=== PATIENT | female | born 1940 | race Two or more races ===

== ENCOUNTER 2017-03-23 11:51 | Inpatient (IN) | payer MEDICARE ==
[~2017-03-23] VITALS: Ht 157.5 cm; Wt 61.0 kg
[2017-03-23] VITALS (7 sets, daily range): BP systolic 95–111; BP diastolic 66–77
[2017-03-23] MEDS ORDERED: DIGO125T PO (12:17)
[2017-03-23] MEDS ORDERED: METO-99 PO (12:17)
[2017-03-23] MEDS ORDERED: OMEP-110 PO (12:17)
[2017-03-23] MEDS ORDERED: POTA10TA31 PO (12:17)
[2017-03-23] MEDS ORDERED: FURO20TA3 PO (12:17)
[2017-03-23] MEDS ORDERED: WARF2.5T73 PO (12:17)
[2017-03-23] MEDS ORDERED: SODIUM CHLORIDE FLUSH 10ML SYR IVF ONE (12:30)
[2017-03-23 12:59] LABS: ASPARTATE AMINO TRANSFERASE 28 U/L (15-37); BLOOD UREA NITROGEN 17 mg/dL (7-18)
[2017-03-23 13:00] LABS: IS PT STATUS REG ER OR PRE ER? YES
[2017-03-23] MEDS ORDERED: DILTIAZEM 5 MG/ML, 5ML IVPush ONE ×3 (13:30→17:30)
[2017-03-23] MEDS ORDERED: DILTIAZEM 5 MG/ML, 5ML ONE ×2 (14:08→16:38)
[2017-03-23] MEDS ORDERED: DOCUSATE 100 MG CAPSULE PO PRN (16:00)
[2017-03-23] MEDS ORDERED: BISACODYL 10 MG SUPP PR PRN (16:00)
[2017-03-23] MEDS ORDERED: ONDANSETRON 2MG/ML, 2ML IVP PRN (16:00)
[2017-03-23] MEDS ORDERED: POLYETHYLENE GLYCOL 17 GM PACKET PO PRN (16:00)
[2017-03-23] MEDS ORDERED: ACETAMINOPHEN 325 MG TABLET PO PRN (16:00)
[2017-03-23 16:11] LABS: TOTAL IRON BINDING CAPACITY 476 mcg/dL (250-450)
[2017-03-23] MEDS ORDERED: DILTIAZEM 125 MG in SODIUM CHLORIDE 0.9% 100 ML IV PRN (17:50)
[2017-03-23] MEDS ORDERED: FUROSEMIDE 20 MG/2 ML IVPush ONE (18:00)
[2017-03-23 19:10] LABS: IS PT STATUS REG ER OR PRE ER? NO
[2017-03-23 19:32] LABS: PATH.CAST-FLAG NOT PRESENT; SPERM-FLAG NOT PRESENT; SRC-FLAG NOT PRESENT; XTAL-FLAG NOT PRESENT; YLC-FLAG NOT PRESENT
[2017-03-23] MEDS: SODIUM CHLORIDE FLUSH 10ML SYR IVF SCH (21:00)
[2017-03-23] MEDS ORDERED: METO-95 PO (21:29)
[2017-03-23] MEDS ORDERED: PNEUMOCOCCAL 23 VACCINE IM-VACC ONE (21:30)
[2017-03-24 01:16] VITALS: BP 106/71
[2017-03-24 01:18] VITALS: BP 106/71
[2017-03-24] MEDS: CEFTRIAXONE PMX 1GM/50ML 50 ML IV SCH (01:45)
[2017-03-24 07:19] LABS: IS PT STATUS REG ER OR PRE ER? NO
[2017-03-24 07:25] LABS: ASPARTATE AMINO TRANSFERASE 22 U/L (15-37); BLOOD UREA NITROGEN 17 mg/dL (7-18)
[2017-03-24 08:16] VITALS: BP 120/75
[2017-03-24] MEDS: OMEPRAZOLE 20 MG CAPSULE.DR PO SCH (08:46)
[2017-03-24] MEDS: METOPROLOL TARTRATE 100 MG TABLET PO SCH (08:46)
[2017-03-24] MEDS: POTASSIUM CHLORIDE 10 MEQ TABLET.ER PO SCH (08:47)
[2017-03-24] MEDS: SODIUM CHLORIDE FLUSH 10ML SYR IVF SCH ×2 (08:47→20:09)
[2017-03-24] MEDS: IRON SUCROSE COMPLEX 100MG/5ML IV SCH (08:47)
[2017-03-24] MEDS ORDERED: DIGOXIN 0.125 MG TABLET PO SCH (09:00)
[2017-03-24] MEDS ORDERED: FUROSEMIDE 20 MG TABLET PO SCH (09:00)
[2017-03-24] MEDS: DILTIAZEM 30 MG TABLET PO SCH ×3 (13:02→20:08)
[2017-03-24 13:51] LABS: OCCBLD OBC PASS
[2017-03-24] MEDS: AMOXICILLIN 500 MG CAPSULE PO SCH ×2 (16:54→20:07)
[2017-03-24 17:01] VITALS: BP 95/60
[2017-03-24] MEDS ORDERED: WARFARIN 2.5 MG TABLET PO-COUM SCH (18:00)
[2017-03-24 19:43] VITALS: BP 109/64
[2017-03-24] MEDS: CLARITHROMYCIN 500 MG TABLET PO SCH (20:08)
[2017-03-24] MEDS ORDERED: SUCRALFATE 1 GM TABLET PO SCH (21:00)
[2017-03-25 00:33] VITALS: BP 87/46
[2017-03-25] MEDS: CEFTRIAXONE PMX 1GM/50ML 50 ML IV SCH (02:20)
[2017-03-25 03:24] LABS: BLOOD UREA NITROGEN 31 mg/dL (7-18)
[2017-03-25 05:50] VITALS: BP 118/69
[2017-03-25] MEDS: DILTIAZEM 30 MG TABLET PO SCH (05:53)
[2017-03-25 06:37] VITALS: BP 93/52
[2017-03-25] MEDS ORDERED: FUROSEMIDE 20 MG TABLET PO SCH (09:00)
[2017-03-25] MEDS: IRON SUCROSE COMPLEX 100MG/5ML IV SCH (09:40)
[2017-03-25] MEDS: METOPROLOL TARTRATE 100 MG TABLET PO SCH (09:41)
[2017-03-25] MEDS: OMEPRAZOLE 20 MG CAPSULE.DR PO SCH (09:41)
[2017-03-25] MEDS: SODIUM CHLORIDE FLUSH 10ML SYR IVF SCH (09:41)
[2017-03-25] MEDS: POTASSIUM CHLORIDE 10 MEQ TABLET.ER PO SCH (09:42)
[2017-03-25] MEDS: AMOXICILLIN 500 MG CAPSULE PO SCH (09:43)
[2017-03-25] MEDS: CLARITHROMYCIN 500 MG TABLET PO SCH (09:43)
[2017-03-25] MEDS ORDERED: DILT30TA27 PO (11:01)
[2017-03-25] MEDS ORDERED: CLAR500T PO (11:01)
[2017-03-25] MEDS ORDERED: AMOX-291 PO (11:01)
[2017-03-25] MEDS ORDERED: FURO20TA3 PO (11:01)
[2017-03-25] MEDS ORDERED: METO-99 PO (11:01)
[2017-03-25] MEDS ORDERED: FERR325T10 PO (11:01)
[2017-03-25] MEDS ORDERED: OMEP-110 PO (11:12)
[2017-03-25] MEDS ORDERED: DILTIAZEM 30 MG TABLET PO SCH (16:00)
== END 2017-03-25 12:55 | disposition home or self-care (01) | DRG 308 ==
LOC: ED 13:24 → EDIP 15:12 → SUATTDRO 15:18 → 5SO 17:44 → DCLOUNGE 03-25 12:35
PROC: 30233N1 Transfusion of Nonautologous Red Blood Cells into Peripheral Vein, Percutaneous Approach (ICD-10-PCS; principal; 2017-03-23)
PROC: 4B02XSZ Measurement of Cardiac Pacemaker, External Approach (ICD-10-PCS; 2017-03-23)
DX: I48.0 Paroxysmal atrial fibrillation (principal); I50.33 Acute on chronic diastolic (congestive) heart failure; E44.1 Mild protein-calorie malnutrition; E87.2 Acidosis; D68.69 Other thrombophilia; D50.0 Iron deficiency anemia secondary to blood loss (chronic); B96.81 Helicobacter pylori [H. pylori] as the cause of diseases classified elsewhere; I08.3 Combined rheumatic disorders of mitral, aortic and tricuspid valves; I11.0 Hypertensive heart disease with heart failure; I48.2 Chronic atrial fibrillation; K21.9 Gastro-esophageal reflux disease without esophagitis; I95.9 Hypotension, unspecified; R04.0 Epistaxis; Z79.01 Long term (current) use of anticoagulants; Z87.891 Personal history of nicotine dependence; Z95.0 Presence of cardiac pacemaker; Z79.899 Other long term (current) drug therapy
CPT/HCPCS: 36415; 71010; 80048; 80053; 80162; 81001; 82272; 82728; 83540; 83550; 83735; 84439; 84443; 84484; 85025; 85610; 85730; 86677; 86850; 86900; 86923; 87040; 87086; 87324; 93005; 96374; 96376; J0696; J1756; J1940; P9016